=== PATIENT | female | born 2000 | race Two or more races ===

== ENCOUNTER 2025-08-22 11:13 | Emergency (ER) | payer MEDICAID, OTHER ==
[~2025-08-22] VITALS: Ht 165.1 cm; Wt 64.5 kg
--- NOTE | 2025-08-22 11:57 | ED.PDOC ---
Eye-HPI HPI Comments 25 year old female patient presents to the clinic for sore throat and left-sided jaw pain for 1 day. Pt states that she feels as though she cannot completely close the left side of her jaw. Pt feels like her molars are not touching. Chief Complaint: Sore Throat Time Seen by MD: 11:38 Reviewed Notes: Nurses Notes, Medications, Allergies Allergies: Coded Allergies: NO KNOWN ALLERGIES (Unverified , 08/22/25) Home Meds Active Scripts Benzocaine-Menthol (Mouth-Thro (Cepacol Sore Throat Extra 15-3.6 mg) 1 Huan Huan, 1 HUAN MT Q2HPRN PRN for 5 Days, #60 HUAN 0 Refills Prov:VERNELL KLEIN [facility] 08/22/25 Ibuprofen (Ibuprofen) 600 Mg Tab, 1 TAB PO TID PRN for 10 Days, #30 TAB 0 Refills Prov:VERNELL KLEIN [facility] 08/22/25 Information Source: Patient, Relative Mode of Arrival: Ambulatory Constitutional: denies: chills, diaphoresis, fatigue, fever, malaise, sweats, weakness, others EENTM: reports: throat pain, others (left jaw pain) Respiratory: denies: cough, hemoptysis, orthopnea, SOB at rest, shortness of breath, SOB with excertion, stridor, wheezing, others Cardiovascular: denies: chest pain, dizzy spells, diaphoresis, Dyspnea on exertion, edema, irregular heart beat, left arm pain, lightheadedness, palpitations, PND, syncope, others Gastrointestinal: denies: abdomen distended, abdominal pain, blood streaked bowels, constipated, diarrhea, dysphagia, difficulty swallowing, hematemesis, melena, nausea, poor appetite, poor fluid intake, rectal bleeding, rectal pain, vomiting, others Genitourinary: denies: abnormal vagina bleeding, burning, dyspareunia, dysuria, flank pain, frequency, hematuria, incontinence, pain, , vagina discharge, urgency, others Neurological: denies: dizziness, fainting, headache, left sided numbness, left sided weakness, numbness, paresthesia, pre-existing deficit, right sided numbness, right sided weakness, seizure, speech problems, tingling, tremors, weakness, others Musculoskeletal: denies: back pain, gout, joint pain, joint swelling, muscle pain, muscle stiffness, neck pain, others Integumetry: denies: bruises, change in color, change in hair/nails, dryness, laceration, lesions, lumps, rash, wounds, others Allergic/Immunocompromised: denies: Difficulty Healing, Frequent Infections, Hives, Itching, others Hematologic/Lymphatic: denies: anemia, blood clots, easy bleeding, easy bruising, swollen glands, others Endocrine: denies: excessive hunger, excessive sweating, excessive thirst, excessive urination, flushing, intolerance to cold, intolerance to heat, unexplained weight gain, unexplained weight loss, others Psychiatric: denies: anxiety, bipolar disorder, depression, hopeless, panic disorder, schizophrenia, sleepless, suicidal, others Physical Exam General Appearance: No Apparent Distress, Normal HEENT: Normal ENT Inspection, Pharyngeal Erythema, TMs Normal Neck: Full Range of Motion, Non-Tender, Normal, Normal Inspection Respiratory: Chest Non-Tender, Lungs Clear, No Accessory Muscle Use, No Respiratory Distress, Normal Breath Sounds Cardiovascular: No Edema, No JVD, No Murmur, No Gallop, Normal Peripheral Pulses, Regular Rate/Rhythm Breast Exam: Deferred Gastrointestinal: No Organomegaly, Non Tender, No Pulsatile Mass, Normal Bowel Sounds, Soft Genitalia: Deferred Pelvic: Deferred Rectal: Deferred Extremities: No calf tenderness, Normal capillary refill, Normal inspection, Normal range of motion, Non-tender, No pedal edema Musculoskeletal : Apperance: Normal Neurologic: Alert, freight adjuster II-XII nml as Tested, No Motor Deficits, Normal Affect, Normal Mood, No Sensory Deficits Cerebellar Function: Normal Reflexes: Normal Skin: Dry, Normal Color, Warm Lymphatic: No Adenopathy Was a procedure done? Was a procedure done?: No EENT DIFF Eye: N/A Ear: N/A Nose: N/A Mouth: Herpangina Sore Throat: Herpangina, Pharyngitis, Streptococcal, Viral Pharyngitis, URI X-Ray, Labs, Meds, VS Vital Signs Date Time Temp Pulse Resp B/P (MAP) Pulse Ox O2 Delivery O2 Flow Rate FiO2 08/22/25 12:03 79 16 98 Room Air 08/22/25 12:03 97.8 79 16 111/62 (78) 98 97.8 08/22/25 11:15 97.8 79 16 111/62 98 97.8 Current Medications Medications (Trade) Dose Ordered Sig/Veronica Route Start Time Stop Time Status Last Admin Ketorolac Tromethamine (Toradol Injection) 60 mg ONCE ONCE IM 08/22/25 12:00 08/22/25 12:04 DC 08/22/25 12:54 X-Ray, Labs, Meds, VS Comment On re-evaluation patient has symptomatic improvement. Patient is stable for discharge at this time. All test results and diagnostic imaging have been interpreted. All diagnostic findings, discharge care, and education instruction provided to the patient. Follow-up with PCP in 2-3 days Patient verbalized understanding, discharge instructions and agrees to treatment plan Vital signs are stable Patient is ambulatory Patient advised of which symptoms necessitate a return visit to the emergency room. Patient to return emergency room for any new worsening symptoms. Patient is aware that the purpose of this visit is for an acute medical emergency requiring emergent stabilization. Chronic conditions, including malignancies have not been ruled out. Patient is instructed to follow up with PCP as directed for continued care and workup. If unable to arrange follow up, patient is to return to the emergency room for reassessment. Patient was given verbal and written discharge instructions and acknowledges understanding Time of 1ST Reevaluation: 13:25 Reevaluation 1ST: Improved Patient Education/Counseling: Diagnosis, Treatment, Prognosis Family Education/Counseling: Diagnosis, Treatment, Prognosis SEPSIS Sepsis Screen Date sepsis recognized/suspect: Aug 22, 2025 Time Sepsis recognized/suspect: 111 Recent Procedure: No On Antibiotic Therapy: No Respiratory Rate >20: No Heart Rate >90: No Temp<36 C (96.8 F) or >38.3 C: No SBP <90 or MAP <65 mmHG: No New Acute Mental Status Change: No Is the patient on CPAP, BIPAP,: No Physician Orders Facial Bones Complete (08/22/25 11:48) Vital Signs Date Time Temp Pulse Resp B/P (MAP) Pulse Ox O2 Delivery O2 Flow Rate FiO2 08/22/25 12:03 79 16 98 Room Air 08/22/25 12:03 97.8 79 16 111/62 (78) 98 97.8 08/22/25 11:15 97.8 79 16 111/62 98 97.8 Medications Medications Dose Ordered Sig/Veronica Route Start Time Stop Time Status Last Admin Dose Admin Ketorolac Tromethamine 60 mg ONCE ONCE IM 08/22/25 12:00 08/22/25 12:04 DC 08/22/25 12:54 Departure 1 Departure Time of Disposition: 13:45 Impression: Primary Impression: Pharyngitis Qualified Codes: J02.9 - Acute pharyngitis, unspecified Additional Impression: Jaw pain, non-TMJ Disposition: HOME / SELF CARE / HOMELESS Condition: Good e-Prescriptions Benzocaine-Menthol (Mouth-Thro (Cepacol Sore Throat Extra 15-3.6 mg) 1 Huan Huan 1 HUAN MT Q2HPRN PRN for 5 Days, #60 HUAN 0 Refills Prov: VERNELL KLEIN [facility] 08/22/25 Ibuprofen (Ibuprofen) 600 Mg Tab 1 TAB PO TID PRN for 10 Days, #30 TAB 0 Refills Prov: VERNELL KLEIN [facility] 08/22/25 Discharged With: Self Critical Care Note Critical Care Time?: No Stability Stability form required: No Heart Score Heart Score: Heart Score Response (Comments) Value History N/A 0 EKG N/A 0 Age N/A 0 Risk Factors N/A 0 Troponin N/A 0 Total 0 VERNELL KLEIN [facility] Aug 22, 2025 11:57
[2025-08-22 12:03] VITALS: BP 111/62; PULSE 79; RESP 16; TEMP 97.8; O2SAT 98
[2025-08-22] MEDS: KETOROLAC TROMETH 60MG/2ML VIAL IM ONE (12:54)
--- NOTE | 2025-08-22 13:27 | DVH ---
XY FACIAL BONES COMPLETE, INDICATION: TECHNICAL DATA: Frontal, vertex, Sherwood and lateral views were obtained of the skull. COMPARISON: None FINDINGS: No fracture or focal bone abnormality is demonstrated. The paranasal sinuses appear well aerated with no filling defect. The mastoid air cells are clear. IMPRESSION: No acute fracture radiographs of the skull.
[2025-08-22] MEDS ORDERED: BENZ1LOZ3 MT (13:47)
[2025-08-22] MEDS ORDERED: IBUP-1454 PO (13:47)
== END 2025-08-22 13:50 | disposition home or self-care (01) ==
LOC: ER 11:13
DX: J02.9 Acute pharyngitis, unspecified (principal); R68.84 Jaw pain; Z79.899 Other long term (current) drug therapy
CPT/HCPCS: 96372; 99283; J1885; 70140